=== PATIENT | male | born 1990 | race Caucasian/White ===

== ENCOUNTER 2020-09-13 19:37 | Emergency (ER) | payer OTHER ==
[~2020-09-13] VITALS: Ht 177.8 cm; Wt 102.1 kg
[~2020-09-13 19:37] MED LIST: CIPR500 PO; CYCL10 PO; HYDACE5 PO; HYDMOR2 PO; IBUP600 PO; MARIJUANA; NAPR500 PO; PROM25 PO; RXOXYACE PO; RXPROM25 PO
[2020-09-13] MEDS ORDERED: NYST237S MT (20:31)
[2020-09-15] MEDS ORDERED: NYST237S MT (11:50)
== END 2020-09-13 21:36 | disposition home or self-care (01) ==
LOC: ER 19:37
DX: K13.79 Other lesions of oral mucosa (principal); K14.9 Disease of tongue, unspecified; F17.210 Nicotine dependence, cigarettes, uncomplicated
CPT/HCPCS: 99282; A9270